=== PATIENT | female | born 2000 | race Caucasian/White ===

== ENCOUNTER 2022-05-21 20:07 | Emergency (ER) | payer OTHER, SELFPAY ==
[2022-05-21 20:18] VITALS: BP 120/92; PULSE 88; RESP 12; TEMP 36.8; O2SAT 100
--- NOTE | 2022-05-21 20:27 | ED.GENADULT ---
HPI - General Adult General Chief complaint: Unspecified Stated complaint: nausea Source: patient Mode of arrival: ambulatory Limitations: no limitations History of Present Illness HPI narrative: This is a 21-year-old female that presents with some nausea and few episodes of vomiting over the past week, also has been having diarrhea over the past week but has subsequently improved there is no abdominal pain no suprapubic pain or tenderness no flank pain no dysuria or hematuria had a few episodes of vomiting and nausea throughout the day, has been taking [id number] preparations with minimal relief, has been able to keep liquids and her food down without any vomiting. And no significant past medical history. Onset (ago): week(s) Related Data Allergies Allergy/AdvReac Type Severity Reaction Status Date / Time No Known Allergies Allergy Verified 05/21/22 20:24 Review of Systems Review of Systems: All systems reviewed & are unremarkable except as noted in HPI and below PMFSH Past Medical History Medical History Patient denies medical problems Exam Const: General: cooperative, healthy appearing, comfortable, no acute distress, well developed, alert, awake and Physically active Nutritional Appearance: average body habitus and well nourished Orientation/consciousness: oriented to person and oriented to place HENMT: Head: normal to inspection Face/Nose/Sinus: Normal external nose present Face and sinus: normal facial exam Mouth: Yes Normal oral and palatal mucosa present Throat: posterior oropharynx normal Eyes: General: appearance normal, both eyes and all related structures Visual Dang: normal visual dang by confrontation Alignment and Position: alignment normal Periorbital: periorbital findings normal Neck: Neck: normal visual inspection Chest: Chest palpation & inspection: normal inspection of the chest Resp: Effort & Inspection: normal respiratory effort Auscultation: clear to auscultation bilaterally Cardio: Jugular venous distension: no JVD Palpation: normal PMI Rate: regular rate Rhythm: regular rhythm Heart sounds: S1 normal heart sound present and S2 normal heart sound present GI: Inspection: normal to inspection : General: Yes bimanual renal exam normal bilaterally Urinary Catheter: Urinary Catheter: patent and draining Back/Spine/Pelvis: Back: no CVA tenderness Cervical Spine: normal cervical lordosis and cervical ROM normal Thoracic/Lumbar Spine: thoracic and lumbar spine normal to inspection, thoraco-lumbar ROM normal and straight leg raise negative bilaterally Skin: General skin exam: normal color, no rashes or lesions noted, elasticity normal and turgor normal Neuro: General: oriented to person, oriented to place, oriented to time and patient oriented x3 Extrem: General: normal to inspection, full ROM and capillary refill normal Psych: Appearance: grossly normal Mental Status: mental status grossly normal Speech and movement: Normal speech and movement present Course Course Emergency Course: patient received oral dose of Zofran which has improved nausea, and labs including CBC CMP urine were performed and reviewed. Vital Signs Vital signs: Vital Signs Temperature 36.8 C 05/21/22 20:18 Pulse Rate 88 05/21/22 20:18 Respiratory Rate 12 05/21/22 20:18 Blood Pressure 120/92 H 05/21/22 20:18 Pulse Oximetry 100 05/21/22 20:18 Oxygen Delivery Room Air 05/21/22 20:18 Temperature 36.8 C 05/21/22 20:18 Pulse Rate 88 05/21/22 20:18 Respiratory Rate 12 05/21/22 20:18 Blood Pressure 120/92 H 05/21/22 20:18 Pulse Oximetry 100 05/21/22 20:18 Oxygen Delivery Room Air 05/21/22 20:18 Medical Decision Making Vital Signs Vital Signs: Vital Signs Temperature 36.8 C 05/21/22 20:18 Pulse Rate 88 05/21/22 20:18 Respiratory Rate 12 05/21/22 20:18 Blood Pressure
[2022-05-21] MEDS: ONDANSETRON HCL ODT 4 MG TABLET PO (20:32)
[2022-05-21 20:50] LABS: Bilirubin Urine 1+ (Negative); Blood Urine 1+ (Negative); Color Urine Light Yellow (Yellow); Glucose Urine UA Negative (Negative); Ketones Urine 3+ (Negative); Leukocyte Esterase Ur 2+ LEU/UL (Negative); Nitrate Urine Negative (Negative); Protein Urine Negative (Negative); Specific Grav Ur >= 1.030 (1.010-1.020); Urobilinogen Urine 0.2 mg/dL (0.2-1.0)
[2022-05-21 20:58] LABS: Add Urine Microscopic? YES; Appearance Urine Cloudy (Clear); Pregnancy On Board Control Positive; Urine Pregnancy Test Negative
[2022-05-21 20:59] LABS: Bacteria Urine 2+ /hpf; Squamous Epithelial Cell Urine Moderate /hpf (Few); WBC Clumps Urine Present /hpf; WBC Urine >75 /hpf (0-3)
[2022-05-21 21:12] LABS: Basophils Absolute Auto 0.03 K/mm3 (0.00-0.10); Basophils Percent Auto 0.4 % (0.0-1.0); Eosinophils Absolute Auto 0.03 K/mm3 (0.02-0.50); Eosinophils Percent Auto 0.4 % (1.0-6.0); Hemoglobin 13.3 g/dL (12.0-15.0); Immature Granulocyte Absolute 0.04 K/mm3 (0.00-0.00); Immature Granulocyte Percent A 0.5 % (0.0-0.0); Lymphocytes Absolute Auto 2.77 K/mm3 (1.10-4.50); Lymphocytes Percent Auto 33.1 % (18.0-42.0); Mean Corpuscular HGB Conc 34.1 g/dL (32.0-36.0); Mean Corpuscular Hemoglobin 31.4 pg (27.0-31.0); Mean Corpuscular Volume 92.2 fL (78.0-102.0); Mean Platelet Volume 9.6 fl (9.2-11.8); Monocytes Absolute Auto 0.54 K/mm3 (0.10-0.90); Monocytes Percent Auto 6.5 % (2.0-11.0); Neutrophils Percent Auto 59.1 % (50.0-70.0); Platelet Count Result 254 K/mm3 (150-420); Red Blood Count 4.23 M/mm3 (4.20-5.40); Red Cell Distribution Width 11.9 % (11.6-14.4); White Blood Count 8.4 K/mm3 (4.8-10.8)
[2022-05-21 21:28] LABS: Alanine Aminotransferase 17 U/L (14-59); Albumin Level 4.4 g/dL (3.4-5.0); Alkaline Phosphatase 73 U/L (46-116); Anion Gap 12 mmol/L (8-16); Aspartate Amino Transferase 19 U/L (15-37); Bilirubin,Total 0.5 mg/dL (0.00-1.00); Blood Urea Nitrogen 16 mg/dL (7-18); Calcium 8.9 mg/dL (8.5-10.1); Carbon Dioxide 26 mmol/L (21-32); Chloride 103 mmol/L (98-108); Estimated CRCL calculation 95 ml/min; Estimated Glomerular Filt Rate > 60; Glucose 76 mg/dL (70-99); Osmolality Calculated 292 mOsm/kg (285-295); Potassium 3.6 mmol/L (3.5-5.1); Sodium 141 mmol/L (136-145); Total Protein 7.7 g/dL (6.4-8.2)
[2022-05-21] MEDS: cefTRIAXone 1 GM, LIDOCAINE HCL 1% LOCAL INJ 2.1 ML IM (21:47)
[2022-05-21 21:53] VITALS: BP 112/72; PULSE 70; RESP 14; O2SAT 99
--- NOTE | 2022-05-24 13:08 | PC.NURSE ---
final urine culture reviewed. no growth. no change in plan of care.
== END 2022-05-21 22:00 | disposition home or self-care (01) ==
PROVIDERS: Emergency Provider Emergency Medicine; PCP Nurse Practitioner
DX: N30.00 Acute cystitis without hematuria (principal); R11.2 Nausea with vomiting, unspecified
CPT/HCPCS: 36415; 80053; 81001; 81025; 85025; 87086; 96372; 99284; A9270; J0696

== ENCOUNTER 2022-05-24 08:26 | Emergency (ER) | payer OTHER, SELFPAY ==
[2022-05-24 08:29] VITALS: BP 102/62; PULSE 79; RESP 18; TEMP 36.6; O2SAT 100
[2022-05-24 08:30] VITALS: BP 102/62; PULSE 79; RESP 18; TEMP 36.6; O2SAT 100
[2022-05-24] MEDS: PROCHLORPERAZINE EDISYLATE 10 MG/2 ML VIAL IM (08:44)
--- NOTE | 2022-05-24 08:51 | ED.NAVMDI ---
HPI - Nausea/Vomiting/Diarrhea General Chief complaint: Nausea/Vomiting/Diarrhea Stated complaint: Nausea Time Seen by Provider: 05/24/22 08:29 History of Present Illness HPI Narrative: This is a 21-year-old female, recently seen here diagnosed with a urinary tract infection, who returns to the emergency department complaining of nausea and vomiting this morning. She states approximately 4 hours ago, she woke up nauseous vomiting. She denies blood in the vomit but had a small amount of nonbloody diarrhea. Prior to today she has been tolerating food and medications well. She also states she is marijuana once again after about a 1 week break. Related Data Allergies Allergy/AdvReac Type Severity Reaction Status Date / Time No Known Allergies Allergy Verified 05/24/22 08:31 Review of Systems Review of Systems: CONSTITUTIONAL: Denies fever, chills, or sweats. ENT: Denies rhinorrhea, congestion, sore throat, or otalgia. CARDIOVASCULAR: Denies chest pain, palpitations, or edema. RESPIRATORY: Denies cough or dyspnea. GASTROINTESTINAL: nausea, vomiting, and diarrhea. Denies abdominal pain, GENITOURINARY: Dysuria, improved denies hematuria. SKIN: Denies rash or itching. MUSCULOSKELETAL: Denies back pain, joint pain, or myalgia. NEUROLOGIC: Denies headache, numbness, dizziness, or weakness. PSYCHIATRIC: Denies anxiety or depression. PMFSH Past Medical History Medical History Patient denies medical problems Social History Social History (Updated 05/24/22 @ 08:54 by Umesh Montoya MD) Smoking status: Current every day smoker Alcohol intake: never Substance use: current Substance use type: marijuana Exam Narrative: GENERAL: Well-developed, well-nourished, and in no acute distress. HEAD: Normocephalic, atraumatic. EYES: PERRLA and EOMI. ENT: Nares clear, no rhinorrhea or epistaxis. Mucous membranes moist. Oropharynx without tonsillar hypertrophy exudate or other lesions. CHEST: Clear to auscultation. No respiratory distress. No wheezes rales or rhonchi HEART: Regular rate and rhythm. No murmur heard. Normal peripheral pulses. ABDOMEN: Soft, nontender, nondistended, normal active bowel sounds. No CVA tenderness to palpation EXTREMITIES: Normal range of motion. No edema. SKIN: Warm, dry, no rash. NEURO: No focal deficits. Alert and oriented x3. PSYCH: Normal mood and affect. Course Course Emergency Course: 09:30 - On reevaluation, the patient states she feels much better and is comfortable with discharge. Discussed return and emergency precautions including signs/symptoms of acute abdomen. The patient voiced understanding is comfortable with the plan. All questions answered to her satisfaction. Vital Signs Vital signs: Vital Signs Temperature 97.9 F 05/24/22 08:29 Pulse Rate 79 05/24/22 08:29 Respiratory Rate 18 05/24/22 08:29 Blood Pressure 102/62 05/24/22 08:29 Pulse Oximetry 100 05/24/22 08:29 Oxygen Delivery Room Air 05/24/22 08:29 Temperature 98.2 F 05/24/22 09:27 Pulse Rate 68 05/24/22 09:27 Respiratory Rate 16 05/24/22 09:27 Blood Pressure 115/61 05/24/22 09:27 Pulse Oximetry 100 05/24/22 09:27 Oxygen Delivery Room Air 05/24/22 09:27 MDM - Nausea/Vomiting/Diarrhea MDM Narrative Medical decision making narrative: Plan: Antiemetics, reassess Differential Diagnosis Differential diagnosis: Likely gastroenteritis, drug-induced nausea and vomiting and other (UTI, other) Discharge Plan Discharge Clinical Impression: Nausea & vomiting, Gastroenteritis Patient Disposition: Home, Self-Care Condition: Improved Instructions: Antibiotic Form Additional Instructions: You were seen in the emergency department. Your exam and vital signs are reassuring. I recommend discontinuing the Zofran and taking Compazine for your nausea. If you develop severe persistent abdominal pain, persistent
[2022-05-24 09:27] VITALS: BP 115/61; PULSE 68; RESP 16; TEMP 36.8; O2SAT 100
== END 2022-05-24 10:00 | disposition home or self-care (01) ==
PROVIDERS: Emergency Provider Preventive Medicine Aerospace Medicine; PCP Nurse Practitioner
DX: K52.9 Noninfective gastroenteritis and colitis, unspecified (principal); F17.200 Nicotine dependence, unspecified, uncomplicated
CPT/HCPCS: 96372; 99284; J0780

== ENCOUNTER 2022-07-27 21:27 | Emergency (ER) | payer OTHER, SELFPAY ==
[2022-07-27 21:34] VITALS: BP 95/61; PULSE 75; RESP 18; TEMP 37.2; O2SAT 98
--- NOTE | 2022-07-27 21:58 | ED.NAVMDI ---
HPI - Nausea/Vomiting/Diarrhea General Chief complaint: Nausea/Vomiting/Diarrhea Stated complaint: Nauseated Time Seen by Provider: 07/27/22 21:58 Source: patient Mode of arrival: ambulatory Limitations: no limitations History of Present Illness HPI Narrative: 21-year-old female, currently on her Menstrual period presents to the ER with -- 1 day history of nausea, vomiting and diarrhea. -- She had abdominal pain a week ago but that has resolved patient has recurrent episodes of gastroenteritis. MD elicited complaint: nausea, vomiting and diarrhea Pertinent past history: anorexia Onset (ago): hour(s) ( Symptoms started today at 5:00 a.m.) Description of vomiting: watery Description of diarrhea: watery Associated nausea: Yes Associated abdominal pain: No Exacerbating factors: none Relieving factors: none Associated symptoms: denies other symptoms Related Data Allergies Allergy/AdvReac Type Severity Reaction Status Date / Time No Known Allergies Allergy Verified 05/24/22 08:31 Review of Systems Review of Systems: All systems reviewed & are unremarkable except as noted in HPI and below Constitutional: Constitutional: Reports as per HPI and Reports no additional constitutional complaints Eyes: Eyes: Reports as per HPI and Reports no additional eye complaints ENT: Reports system reviewed and no additional complaints, except as documented and Reports as per HPI Cardiovascular: Cardiovascular: Reports as per HPI and Reports no additional cardiovascular complaints Respiratory: Respiratory: Reports as per HPI and Reports no additional respiratory complaints Gastrointestinal: Gastrointestinal: Reports as per HPI and Reports no additional gastrointestinal complaints Genitourinary: Genitourinary: Reports no additional female genitourinary complaints and Reports as per HPI Musculoskeletal: Musculoskeletal: Reports no additional musculoskeletal complaints and Reports as per HPI Integumentary/Breasts: Skin/Breast: Reports system reviewed and no additional complaints, except as docu and Reports as per HPI Neurologic: Reports system reviewed and no additional complaints, except as documented and Reports as per HPI Psychiatric: Psychiatric: Reports no additional psychiatric complaints and Reports as per HPI Endocrine: Endocrine: Reports no additional endocrine complaints and Reports as per HPI Hematologic/Lymphatic: Hematologic/Lymphatic: Reports no additional hematologic/lymphatic complaints and Reports as per HPI Allergic/Immunologic: Allergic/Immunologic: Reports no additional allergic/immunologic complaints and Reports as per HPI PMF Past Medical History Medical History Patient denies medical problems Social History Social History Smoking status: Current every day smoker Alcohol intake: never Substance use: current Substance use type: marijuana Exam Const: General: no acute distress Orientation/consciousness: patient oriented x3 Limitations: no limitations HENMT: Head: normal to inspection Ears: external ears normal Face/Nose/Sinus: Normal external nose present Face and sinus: normal facial exam Mouth: Yes Normal oral and palatal mucosa present Throat: posterior oropharynx normal Eyes: Conjunctivae: conjunctivae normal Cornea: corneas normal Pupils: Equal, round and reactive pupils present EOM: EOMs intact bilaterally Direct Ophthalmoscopy: no photophobia Neck: Neck: normal visual inspection, no lymphadenopathy and no meningeal signs Chest: Chest palpation & inspection: normal inspection of the chest Resp: Effort & Inspection: normal respiratory effort Auscultation: clear to auscultation bilaterally Cardio: Rate: regular rate Rhythm: regular rhythm GI: GI Palp: Yes Soft to palpation Auscultation: normal bowel sounds Rectal Exam: normal sphincter tone : General: Ye
[2022-07-27] MEDS: ONDANSETRON HCL ODT 4 MG TABLET PO (22:17)
[2022-07-27 22:27] LABS: Basophils Absolute Auto 0.02 K/mm3 (0.00-0.10); Basophils Percent Auto 0.1 % (0.0-1.0); Eosinophils Absolute Auto 0.01 K/mm3 (0.02-0.50); Eosinophils Percent Auto 0.1 % (1.0-6.0); Hemoglobin 11.5 g/dL (12.0-15.0); Immature Granulocyte Absolute 0.06 K/mm3 (0.00-0.00); Immature Granulocyte Percent A 0.4 % (0.0-0.0); Lymphocytes Absolute Auto 1.65 K/mm3 (1.10-4.50); Lymphocytes Percent Auto 12.2 % (18.0-42.0); Mean Corpuscular HGB Conc 33.8 g/dL (32.0-36.0); Mean Corpuscular Hemoglobin 31.7 pg (27.0-31.0); Mean Corpuscular Volume 93.7 fL (78.0-102.0); Mean Platelet Volume 9.6 fl (9.2-11.8); Monocytes Absolute Auto 0.52 K/mm3 (0.10-0.90); Monocytes Percent Auto 3.9 % (2.0-11.0); Neutrophils Absolute Auto 11.2 K/mm3 (1.7-7.2); Neutrophils Percent Auto 83.3 % (50.0-70.0); Platelet Count Result 221 K/mm3 (150-420); Red Blood Count 3.63 M/mm3 (4.20-5.40); Red Cell Distribution Width 11.7 % (11.6-14.4); White Blood Count 13.5 K/mm3 (4.8-10.8)
[2022-07-27 22:31] LABS: Appearance Urine Clear (Clear); Bilirubin Urine Negative (Negative); Blood Urine 3+ (Negative); Color Urine Light Yellow (Yellow); Glucose Urine UA Negative (Negative); Ketones Urine Negative (Negative); Leukocyte Esterase Ur 1+ LEU/UL (Negative); Nitrate Urine Negative (Negative); Protein Urine Negative (Negative); Specific Grav Ur <= 1.005 (1.010-1.020); Urobilinogen Urine 0.2 mg/dL (0.2-1.0)
[2022-07-27 22:35] LABS: Add Urine Microscopic? YES
[2022-07-27 22:36] LABS: Bacteria Urine Trace /hpf; RBC Urine 0-2 /hpf (0-2); Squamous Epithelial Cell Urine Few /hpf (Few)
[2022-07-27 22:44] LABS: Alanine Aminotransferase 16 U/L (14-59); Albumin Level 3.7 g/dL (3.4-5.0); Alkaline Phosphatase 58 U/L (46-116); Anion Gap 10 mmol/L (8-16); Aspartate Amino Transferase 15 U/L (15-37); Bilirubin,Total 0.2 mg/dL (0.00-1.00); Blood Urea Nitrogen 8 mg/dL (7-18); Calcium 8.6 mg/dL (8.5-10.1); Carbon Dioxide 26 mmol/L (21-32); Chloride 107 mmol/L (98-108); Estimated CRCL calculation 85 ml/min; Estimated Glomerular Filt Rate > 60; Glucose 117 mg/dL (70-99); Lipase 19 U/L (16-77); Osmolality Calculated 295 mOsm/kg (285-295); Potassium 3.3 mmol/L (3.5-5.1); Sodium 143 mmol/L (136-145); Total Protein 6.5 g/dL (6.4-8.2)
[2022-07-27 22:49] LABS: Lactic Acid Reflex 0.8 mmol/L (0.4-2.0)
[2022-07-27 23:07] LABS: Pregnancy On Board Control Positive; Urine Pregnancy Test Negative
[2022-07-27] MEDS: POTASSIUM CHLORIDE 20 MEQ TABLET PO (23:18)
[2022-07-27] MEDS: SULFAMETHOXAZOLE/TRIMETHOPRIM 800/160 MG DS TABLET 1 TAB PO (23:18)
[2022-07-27 23:27] VITALS: BP 96/68; PULSE 65; RESP 18; TEMP 36.7; O2SAT 100
--- NOTE | 2022-07-30 12:56 | PC.NURSE ---
FINAL URINE CULTURE REPORT: No growth, no further treatment needed at this time.
== END 2022-07-27 23:29 | disposition home or self-care (01) ==
PROVIDERS: Emergency Provider Internal Medicine Critical Care Medicine; PCP Nurse Practitioner
DX: K52.9 Noninfective gastroenteritis and colitis, unspecified (principal); N30.00 Acute cystitis without hematuria; F17.200 Nicotine dependence, unspecified, uncomplicated
CPT/HCPCS: 36415; 80053; 81001; 81025; 83605; 83690; 85025; 87086; 99283; A9270